=== PATIENT | male | born 2000 | race African-American/Black ===

== ENCOUNTER 2022-02-21 17:06 | Emergency (ER) | payer BC ==
[~2022-02-21] VITALS: Ht 160 cm; Wt 86.0 kg
[2022-02-21 17:45] LABS: BASOPHILS % (AUTO) 0 % (0-10); EOSINOPHILS # (AUTO) 0.1 10^3/uL (0.0-0.3); EOSINOPHILS % (AUTO) 2 % (0-10); HEMATOCRIT 44 % (40-54); HEMOGLOBIN 14.3 g/dL (13.3-17.7); LYMPHOCYTES # (AUTO) 1.8 10^3/uL (1.0-4.0); LYMPHOCYTES % (AUTO) 31 % (12-44); MEAN CORPUSCULAR HEMOGLOBIN 28 pg (25-34); MEAN CORPUSCULAR HGB CONC 33 g/dL (32-36); MEAN CORPUSCULAR VOLUME 86 fL (80-99); MEAN PLATELET VOLUME 11.4 fL (9.0-12.2); MONOCYTES # (AUTO) 0.4 10^3/uL (0.0-1.0); MONOCYTES % (AUTO) 7 % (0-12); NEUTROPHILS # (AUTO) 3.5 10^3/uL (1.8-7.8); NEUTROPHILS % (AUTO) 60 % (42-75); PLATELET COUNT 181 10^3/uL (130-400); WHITE BLOOD COUNT 5.9 10^3/uL (4.3-11.0)
[2022-02-21 17:46] LABS: SMEAR SCAN COMMENT YES
[2022-02-21 17:56] LABS: ALBUMIN 4.8 GM/DL (3.2-4.5); CHLORIDE 102 MMOL/L (98-107); POTASSIUM 3.8 MMOL/L (3.6-5.0); SODIUM 137 MMOL/L (135-145)
[2022-02-21 17:57] LABS: CALCIUM 10.3 MG/DL (8.5-10.1)
[2022-02-21 17:59] LABS: GLUCOSE 87 MG/DL (70-105); TOTAL PROTEIN 7.9 GM/DL (6.4-8.2)
[2022-02-21 18:00] LABS: CARBON DIOXIDE 28 MMOL/L (21-32)
--- NOTE | 2022-02-21 18:00 | ED General ---
General Chief Complaint: Dizziness/Syncope Stated Complaint: DIZZINESS Nursing Triage Note: PT PRESENTS TO ED VIA POV FROM PRACTICE ACCOMPANIED BY FOOTBALL STAFF FOR COMPLAINTS OF DIZZINESS AND RACING HEART WHILE RUNNING DRILLS AT PRACTICE. PT STATES HE TOOK A BREAK AND THEN TRIED TO RESUME PRACTICE BUT STARTED HAVING SYMPTOMS AGAIN. Source of Information: Patient Exam Limitations: No Limitations History of Present Illness Date Seen by Provider: Feb 21, 2022 Time Seen by Provider: 17:44 Initial Comments This is a 21-year-old male who presented to the ER via POV with his motor coach operator for concerns of dizziness, racing heart, and not feeling right while he was running drills at practice today. States that he sat down when his symptoms began and slowly began to subside, he attempted to run drills again but his symptoms r eturned so he was pulled from practice. While sitting on field states it felt like his heart was racing and was going to beat out of his chest, symptoms lasted about 3-4 minutes. His motor coach operator is with him and was able to attain a 1-lead via his phone and discussed with Dr. Phan medical staff for [employer]. Recommended going to the emergency department for further evaluation. Upon arrival states that he "just does not feel right". He does not have any chest pain or shortness of breath. No previous history of cardiac or pulmonary disorders. States that he does have family history of cardiac disease, he is unsure exactly what his grandmother's diagnosis was but she did require LVAD with subsequent heart transplant. Denies tobacco, alcohol, illicit drug use. Does not take any home medications. No fever, chills, cough, shortness of breath, nausea, vomiting, abdominal pain. Allergies and Home Medications Allergies Coded Allergies: No Known Drug Allergies (Unverified , 02/21/22) Patient Home Medication List Home Medication List Reviewed: Yes Review of Systems Review of Systems Constitutional: see HPI Past [id number] Hx Patient Social History Tobacco Use?: No Smoking Status: Never a Smoker Substance use?: No Alcohol Use?: No Pt feels they are or have been: No Past Medical History Surgery/Hospitalization HX: L SHOULDER SX Physical Exam Vital Signs Vital Signs - First Documented 02/21/22 02/21/22 17:25 19:17 Temp 36.6 Pulse 79 Resp 20 B/P (MAP) 138/85 (102) Pulse Ox 100 O2 Delivery Room Air Capillary Refill : Less Than 3 Seconds Height, Weight, BMI Height: '" Weight: lbs. oz. kg; 33.00 BMI Method: General Appearance: No Apparent Distress, WD/WN Eyes: Bilateral Eye Normal Inspection, Bilateral Eye PERRL, Bilateral Eye EOMI HEENT: PERRL/EOMI, TMs Normal, Normal ENT Inspection, Pharynx Normal, Moist Mucous Membranes Neck: Full Range of Motion, Normal Inspection, Supple Respiratory: Lungs Clear, Normal Breath Sounds, No Accessory Muscle Use, No Respiratory Distress; No Pleural Rub, No Rales Cardiovascular: Regular Rate, Rhythm, No Murmur Gastrointestinal: Normal Bowel Sounds, Non Tender, Soft Back: Normal Inspection Extremity: Normal Capillary Refill, Normal Inspection, Normal Range of Motion Neurologic/Psychiatric: Alert, Oriented x3, No Motor/Sensory Deficits, Normal Mood/Affect Skin: Normal Color, Warm/Dry Progress/Results/Core Measures Suspected Sepsis SIRS Temperature: Pulse: 79 Respiratory Rate: 20 Laboratory Tests 02/21/22 17:35: White Blood Count 5.9 Blood Pressure 138 /85 Mean: 102 Laboratory Tests 02/21/22 17:35: Creatinine 1.22, Platelet Count 181, Total Bilirubin 0.5 Results/Orders Lab Results Laboratory Tests Test 02/21/22 17:35 02/21/22 17:58 02/21/22 18:03 Range/Units White Blood Count 5.9 4.3-11.0 10^3/uL Red Blood Count 5.08 4.30-5.52 10^6/uL Hemoglobin 14.3 13.3-17.7 g/dL Hematocrit 44 40-54 % Mean Corpuscular Volume 86 80-99 fL Mean Corpuscular Hemoglobin 28 25-34 pg Mean Corpuscular Hemoglobin Concent 33 32-36 g/dL Red Cell Distribution Width 14.4 10.0-14.5 % Platelet Count 181 130-400 10^3/uL Mean Platelet Volume 11.4 9.0-12.2 fL Immature Granulocyte % (Auto) 0 % Neutrophils (%) (Auto) 60 42-75 % Lymphocytes (%) (Auto) 31 12-44 % Monocytes (%) (Auto) 7 0-12 % Eosinophils (%) (Auto) 2 0-10 % Basophils (%) (Auto) 0 0-10 % Neutrophils # (Auto) 3.5 1.8-7.8 10^3/uL Lymphocytes # (Auto) 1.8 1.0-4.0 10^3/uL Monocytes # (Auto) 0.4 0.0-1.0 10^3/uL Eosinophils # (Auto) 0.1 0.0-0.3 10^3/uL Basophils # (Auto) 0.0 0.0-0.1 10^3/uL Immature Granulocyte # (Auto) 0.0 0.0-0.1 10^3/uL D-Dimer <= 0.27 0.00-0.49 UG/ML Sodium Level 137 135-145 MMOL/L Potassium Level 3.8 3.6-5.0 MMOL/L Chloride Level 102 98-107 MMOL/L Carbon Dioxide Level 28 21-32 MMOL/L Anion Gap 7 5-14 MMOL/L Blood Urea Nitrogen 8 7-18 MG/DL Creatinine 1.22 0.60-1.30 MG/DL Estimat Glomerular Filtration Rate 88 BUN/Creatinine Ratio 7 Glucose Level 87 70-105 MG/DL Calcium Level 10.3 H 8.5-10.1 MG/DL Corrected Calcium 8.5-10.1 MG/DL Magnesium Level 1.9 1.6-2.4 MG/DL Total Bilirubin 0.5 0.1-1.0 MG/DL Aspartate Amino Transf (AST/SGOT) 19 5-34 U/L Alanine Aminotransferase (ALT/SGPT) 10 0-55 U/L Alkaline Phosphatase 90 40-136 U/L Total Creatine Kinase 342 H 30-200 U/L Myoglobin 87.5 10.0-92.0 NG/ML Troponin I < 0.028 <0.028 NG/ML Total Protein 7.9 6.4-8.2 GM/DL Albumin 4.8 H 3.2-4.5 GM/DL Thyroid Stimulating Hormone (TSH) 1.08 0.35-4.94 UIU/ML Smear Scan YES Urine Color YELLOW Urine Clarity CLEAR Urine pH 7.5 5-9 Urine Specific Russell 1.010 L 1.016-1.022 Urine Protein 1+ H NEGATIVE Urine Glucose (UA) NEGATIVE NEGATIVE Urine Ketones NEGATIVE NEGATIVE Urine Nitrite NEGATIVE NEGATIVE Urine Bilirubin NEGATIVE NEGATIVE Urine Urobilinogen 0.2 < = 1.0 MG/DL Urine Leukocyte Esterase NEGATIVE NEGATIVE Urine RBC (Auto) NEGATIVE NEGATIVE Urine RBC NONE /HPF Urine WBC 0-2 /HPF Urine Squamous Epithelial Cells NONE /HPF Urine Renal Epithelial Cells NONE /HPF Urine Crystals NONE /LPF Urine Bacteria NEGATIVE /HPF Urine Casts NONE /LPF Urine Mucus NEGATIVE /LPF Urine Culture Indicated NO Urine Opiates Screen NEGATIVE NEGATIVE Urine Oxycodone Screen NEGATIVE NEGATIVE Urine Methadone Screen NEGATIVE NEGATIVE Urine Propoxyphene Screen NEGATIVE NEGATIVE Urine Barbiturates Screen NEGATIVE NEGATIVE Ur Tricyclic Antidepressants Screen NEGATIVE NEGATIVE Urine Phencyclidine Screen NEGATIVE NEGATIVE Urine Amphetamines Screen NEGATIVE NEGATIVE Urine Methamphetamines Screen NEGATIVE NEGATIVE Urine Benzodiazepines Screen NEGATIVE NEGATIVE Urine Cocaine Screen NEGATIVE NEGATIVE Urine Cannabinoids Screen POSITIVE H NEGATIVE Glucometer 95 70-110 MG/DL My Orders Orders - BRITTANY FUENTES APRN Ekg Tracing (02/21/22 17:16) Ua Culture If Indicated (02/21/22 17:36) Ed Iv/Invasive Line Start (02/21/22 17:36) Cbc With Automated Diff (02/21/22 17:36) Comprehensive Metabolic Panel (02/21/22 17:36) Magnesium (02/21/22 17:36) Myoglobin Serum (02/21/22 17:36) Creatine Kinase (02/21/22 17:36) Fibrin Degradation Products (02/21/22 17:36) Troponin I Layla (02/21/22 17:36) Thyroid Stimulating Hormone (02/21/22 17:58) Accucheck Stat ONCE (02/21/22 17:58) Drug Screen Stat (Urine) (02/21/22 18:13) Ekg Tracing (02/21/22 18:14) Orthostatic Vital Signs (Adult (02/21/22 18:14) Ns Iv 1000 Ml (Sodium Chloride 0.9%) (02/21/22 18:45) Vital Signs/I&O 02/21/22 02/21/22 02/21/22 17:25 18:18 19:17 Temp 36.6 Pulse 79 60 61 80 87 Resp 20 14 B/P (MAP) 138/85 (102) 117/71 (86) 124/88 128/87 (101) 131/84 (100) Pulse Ox 100 98 O2 Delivery Room Air Capillary Refill : Less Than 3 Seconds Blood Pressure Mean: 102 Progress Note : Progress Note Reviewed clinical presentation, exam, labs and EKG with Dr. Orellana. No acute or ischemic findings on EKG today, we will plan to see him in office tomorrow follow-up appointment scheduled. We will have him hold off on sports and physical activity until cleared by cardiology. Discharge plan of care reviewed with patient and he is agreeable with plan. ECG Initial ECG Impression Date: Feb 21, 2022 Initial ECG Impression Time: 17:32 Initial ECG Rate: 97 Initial ECG Rhythm: S.Tach Initial ECG Intervals: Normal Initial ECG Impression: Nonspecific Changes Initial ECG Comparisson: No Previous ECG Available EKG : EKG Time: 18:29 Rate: 68 Rhythm: Normal Sinus Intervals: Normal Intervals Sinus arrhythmia Departure Communication (Admissions) Time/Spoke to Consulting Phy: 18:50 Dr. Orellana Impression Primary Impression: Dizziness Additional Impression: Racing heart beat Disposition: 01 HOME, SELF-CARE Condition: Improved Departure-Patient Inst. Decision time for Depature: 18:50 Referrals: ODETTE ORELLANA MD Patient Instructions: Dizziness, Adult ED Add. Discharge Instructions: Plan: 1. No strenuous or aerobic activity until cleared by cardiology. 2. Follow-up with Dr. Orellana, office and phone number provided below. Your appointment is at 2:00 PM tomorrow afternoon. 3. If you have any recurrent, worsening, new symptoms please return to the emergency department. All discharge instructions reviewed with patient and/or family. Voiced understanding. Work/School Note: School/Childcare Release Date Seen in the Emergency Departm ent: Feb 21, 2022 Time Dismissed from Emergency Department: 18:51 Return to School: Feb 22, 2022 Restrictions: No Sports-Until Released Other Restrictions Listed Below: Need cardiology release to continue sports BRITTANY FUENTES APRN Feb 21, 2022 18:00
[2022-02-21 18:01] LABS: BILIRUBIN,TOTAL 0.5 MG/DL (0.1-1.0)
[2022-02-21 18:02] LABS: ALKALINE PHOSPHATASE 90 U/L (40-136); CREATININE SERUM 1.22 MG/DL (0.60-1.30); GFR ESTIMATED 88
[2022-02-21 18:03] LABS: BUN/CREATININE RATIO 7
[2022-02-21 18:05] LABS: ALANINE AMINOTRANSFERASE 10 U/L (0-55)
[2022-02-21 18:18] VITALS: BP_SYST 117; BP_SYST 128; BP_SYST 131; BP_DIAS 71; BP_DIAS 84; BP_DIAS 87
[2022-02-21 18:20] LABS: MAGNESIUM 1.9 MG/DL (1.6-2.4)
[2022-02-21 18:23] LABS: BILIRUBIN,URINE NEGATIVE (NEGATIVE); CLARITY,URINE CLEAR; COLOR,URINE YELLOW; GLUCOSE, URINE (UA) NEGATIVE (NEGATIVE); KETONES,URINE NEGATIVE (NEGATIVE); LEUKOCYTE ESTERASE ,URINE NEGATIVE (NEGATIVE); NITRITE,URINE NEGATIVE (NEGATIVE); PH,URINE 7.5 (5-9); PROTEIN,URINE 1+ (NEGATIVE)
[2022-02-21 18:34] LABS: BACTERIA,URINE NEGATIVE /HPF; WBC,URINE 0-2 /HPF
[2022-02-21] MEDS ORDERED: NS IV 1000 ML 1,000 ML IV SCH (18:45)
[2022-02-21 19:17] VITALS: BP 124/88
[2022-02-21 19:25] LABS: AMPHETAMINE SCREEN, URINE NEGATIVE (NEGATIVE); BARBITURATE SCREEN URINE NEGATIVE (NEGATIVE); BENZODIAZEPINES SCREEN URINE NEGATIVE (NEGATIVE); CANNABINOID SCREEN, URINE POSITIVE (NEGATIVE); COCAINE SCREEN URINE NEGATIVE (NEGATIVE); METHADONE STAT NEGATIVE (NEGATIVE); OPIATE SCREEN URINE NEGATIVE (NEGATIVE); OXYCODONE STAT NEGATIVE (NEGATIVE); PROPOXYPHENE STAT NEGATIVE (NEGATIVE); TRICYCLIC ANTIDEPRESSANTS SCRE NEGATIVE (NEGATIVE)
== END 2022-02-21 19:26 | disposition home or self-care (01) ==
LOC: ER 17:09
DX: R42 Dizziness and giddiness (principal); R00.0 Tachycardia, unspecified; Z82.49 Family history of ischemic heart disease and other diseases of the circulatory system
CPT/HCPCS: 36415; 80053; 80306; 81000; 82550; 82947; 83735; 83874; 84443; 84484; 85025; 85379; 93005